=== PATIENT | male | born 1965 ===

== ENCOUNTER → 2020-12-11 12:47 | Outpatient (BNVA) | payer OTHER, SELFPAY | PROVIDERS: Visit Provider Internal Medicine | DX: R70.0 Elevated erythrocyte sedimentation rate (principal); M25.50 Pain in unspecified joint; M54.9 Dorsalgia, unspecified; Z11.59 Encounter for screening for other viral diseases; R53.83 Other fatigue; F17.290 Nicotine dependence, other tobacco product, uncomplicated | CPT/HCPCS: 99204; 99214 ==

== ENCOUNTER 2020-12-12 09:44 | Outpatient (CLI) | payer OTHER, SELFPAY ==
--- NOTE | 2020-12-12 09:53 | XR_ITS ---
WS: [id number] Right hand, 2 views, 12/12/2020 Clinical Data: R70.0 - Elevated erythrocyte sedimentation rate Comparison: None. Findings: No fractures or dislocations are seen. The soft tissues are unremarkable. There is minima l osteoarthritic change of the right second and third MCP joints. There is minimal osteoarthritis of the right second and third DIP joints. XR/XR hand RT 2V [id number] Impression: Minimal osteoarthritis of the second and third MCP joints and the second and th ird DIP joints of the right hand.
--- NOTE | 2020-12-12 09:53 | XR_ITS ---
WS: [id number] Left foot, 2 views, 12/12/2020 Clinical Data: M25.50 - Pain in unspecified joint Comparison: None. Findings: No fractures or dislocations are seen. No bone destruction or erosion is noted. Minimal osteoarthriti c change of the left first MTP joint is seen. There is an Achilles spur. No periarticular demineraliz ation or calcifications are noted. 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
--- NOTE | 2020-12-12 09:53 | XR_ITS ---
WS: [id number] Left hand, 2 views, 12/12/2020 Clinical Data: R70.0 - Elevated erythrocyte sedimentation rate Comparison: None. Findings: No new fractures or dislocations are seen. The soft tissues are unremarkable. There is minimal osteoa rthritic change of the head of the left third metacarpal There is a healed fracture of the head of th e left fifth metacarpal. There is a fracture of the left ulnar styloid. No periarticular demineraliza tion is seen. XR/XR hand LT 2V [id number] Impression: 1. Old fractures of the left fifth metacarpal and probably the ulnar styloid. 2. 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
--- NOTE | 2020-12-12 09:53 | XR_ITS ---
WS: [id number] Thoracic spine, 3 views, 12/12/2020 Clinical Data: R70.0 - Elevated erythrocyte sedimentation rate Comparison: None. Findings: No compression fractures are seen. The disc heights are normal. Minimal anterior osteoarthritic spurring of the lower thoracic vertebral bodies is seen. There is an anterior cervical disc fusion at C6-C7. XR/XR thoracic spine 3V* [id number] Impression: Minimal osteoarthritis of the lower thoracic vertebral bodies.
--- NOTE | 2020-12-12 09:53 | XR_ITS ---
WS: [id number] Lateral views of cervical spine in the flexion, extension and neutral positions. 12/12/2020 Clinical Data: R70.0 - Elevated erythrocyte sedimentation rate Comparison: None. Findings: There is an anterior cervical disc fusion at C6-C7. 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 There is disc narrowing at C5-C6 with a prominent anterior inferior spur. There is disc space narrowing at C6-C7. No compression fractures are seen. There is no limitation of motio n on flexion or extension and the anterior cervical disc fusion is stable. There is no free vertebral swelling. XR/XR cervical spine fl/ex [id number] Impression: 1. Stable anterior cervical disc fusion at C6-C7. 2. 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 3. Degenerative arthritic change at C4 and especially C5. 4. Degenerative disc narrowing at C5-C6. 5. Stable anterior cervical disc fusion and no limitation of motion on flexion or extension.
--- NOTE | 2020-12-12 09:53 | XR_ITS ---
WS: [id number] Right foot, 2 views, 12/12/2020 Clinical Data: M25.50 - Pain in unspecified joint Comparison: None. Findings: No fractures or dislocations are seen. No bone destruction or erosion is noted. The joint spaces and soft tissues are normal. There is an Achilles spur. No periarticular demineralization or calcifications are noted. XR/XR foot RT 2V [id number] Impression: Negative right foot.
--- NOTE | 2020-12-12 09:53 | XR_ITS ---
WS: [id number] Lumbar spine, 3 views, 12/12/2020 Clinical Data: R70.0 - Elevated erythrocyte sedimentation rate Comparison: None. Findings: No compression fractures or subluxation is seen. There is disc narrowing at L5-S1. There is moderate anterior osteoarthritic spurring of all lumbar vertebral bodies.. The transverse processes and SI leticia nts are normal. XR/XR lumbar spine 2-3V* [id number] Impression: 1. Degenerative disc narrowing at L5-S1. 2. Osteoarthritis of all the lumbar vertebral bodies.
[2020-12-12 11:16] LABS: Basophils # 0.1 10^3/uL (0.0-0.1); Basophils % 1.2 %; Eosinophils % 0.1 %; Hematocrit 42.4 % (42.0-52.0); Hemoglobin 13.8 g/dL (11.7-16.6); Lymphocytes # 2.6 10^3/uL (0.8-4.8); Lymphocytes % 31.4 %; Mean Corpuscular HGB Conc 32.5 g/dL (30.0-36.0); Mean Corpuscular Hemoglobin 31.4 pg (28.0-34.0); Mean Corpuscular Volume 96.6 fL (80-94); Mean Platelet Volume 9.2 fL (7.4-10.4); Monocytes # 0.6 10^3/uL (0.2-0.9); Monocytes % 7.4 %; Neutrophils # 4.84 10^3/uL (1.8-7.7); Neutrophils % 59.5 %; Nucleated Red Blood Cells % 0 %; Platelet Count 280 10^3/cmm (130-400); Red Blood Count 4.39 10^6/uL (4.1-5.3); Red Cell Distribution Width 13.2 % (12.1-15.1); White Blood Count 8.1 10^3/uL (4.0-10.0)
[2020-12-12 11:42] LABS: Calcium 8.9 mg/dL (8.5-10.5)
[2020-12-12 11:49] LABS: Parathyroid Hormone 52.7 pg/mL (15-65)
[2020-12-12 12:14] LABS: Alanine Aminotransferase 56 U/L (0-41); Alkaline Phosphatase 90 IU/L (40-130); Anion Gap 16.1 (5-19); Aspartate Amino Transferase 37 U/L (0-40); Blood Urea Nitrogen 18 mg/dL (6-20); C Reactive Protein 0.3 mg/L (0.0-4.9); Calcium 9.1 mg/dL (8.5-10.5); Carbon Dioxide 24 mmol/L (22-29); Chloride 106 mmol/L (98-107); Creatine Phosphokinase 101 U/L (39-308); Ferritin 25 ng/mL (30-400); Globulin 2.4 g/dL (1.3-4.6); Glomerular Filtration Rate 62.4 mL/min (90-130); Glucose 96 mg/dL (65-115); Iron 50 ug/dL (59-158); Magnesium 1.8 mg/dL (1.7-2.3); Osmolality Calculated 294 mOsm/kg (285-295); Phosphorus 3.2 mg/dL (2.5-4.5); Potassium 5.1 mmol/L (3.5-5.1); Sodium 141 mmol/L (136-145); Total Bilirubin 0.4 mg/dL (0.15-1.2); Total Protein 6.4 g/dL (6.6-8.7); Uric Acid 8.8 mg/dL (3.4-7.0)
[2020-12-12 12:18] LABS: Thyroid Stimulating Hormone 0.79 uIU/mL (0.27-4.20)
[2020-12-12 12:22] LABS: Erythrocyte Sedimentation Rate 15 mm/hr (0-10)
[2020-12-12 12:28] LABS: Cortisol Random 6.78 ug/dL (2.47-19.5); Hepatitis B Core AB, Total Non-Reactive (Nonreactive); Hepatitis B Surface Antigen Non-Reactive (Nonreactive); Hepatitis C Virus Antibody Non-Reactive (Nonreactive); Vitamin B12 834 pg/mL (232-1245)
[2020-12-12 13:05] LABS: 25 Hydroxy Vitamin D 49 ng/mL (30-100)
[2020-12-13 12:27] LABS: Lymes IGG WB <0.90 index
[2020-12-13 13:47] LABS: Cyclic Citrullinated Peptide <16 UNITS
[2020-12-14 14:41] LABS: THYROID PEROXIDASE ANTIBODIES 1 IU/mL (<9)
[2020-12-15 11:07] LABS: COMPLEMENT, TOTAL (CH50) >60 U/mL (31-60)
[2020-12-15 11:33] LABS: COMPLEMENT COMPONENT C3C 139 mg/dL (82-185); COMPLEMENT COMPONENT C4C 28 mg/dL (15-53)
[2020-12-15 12:57] LABS: CENTROMERE B ANTIBODY <1.0 NEG AI (<1.0 NEG); JO-1 ANTIBODY <1.0 NEG AI (<1.0 NEG); RNP ANTIBODY <1.0 NEG AI (<1.0 NEG); SCL-70 ANTIBODY <1.0 NEG AI (<1.0 NEG); SJOGREN'S ANTIBODY (SS-A) <1.0 NEG AI (<1.0 NEG); SM ANTIBODY <1.0 NEG AI (<1.0 NEG); SS-B <1.0 NEG AI (<1.0 NEG)
[2020-12-15 15:46] LABS: HLA-B27 NEGATIVE (NEGATIVE)
[2020-12-16 20:07] LABS: Tissue Transglutaminase IgA Ab <1 U/mL; Tissue transglutaminase Ab.IgG <1 U/mL
[2020-12-18 16:58] LABS: ANA SCREEN, IFA POSITIVE (NEGATIVE)
[2020-12-19 16:43] LABS: Immunoglobulin A 218 mg/dL (47-310)
[2020-12-19 21:37] LABS: Gliadin Ab.IgA 3 U (<20); Gliadin Ab.IgG <1 U (<20)
[2020-12-22 08:58] LABS: DNA AB (DS) CRITHIDIA,IFA NEGATIVE (NEGATIVE)
== END 2020-12-12 09:45 | disposition home or self-care (01) ==
PROVIDERS: Visit Provider Internal Medicine
DX: R70.0 Elevated erythrocyte sedimentation rate (principal); M25.50 Pain in unspecified joint; D86.9 Sarcoidosis, unspecified; Z79.899 Other long term (current) drug therapy; M45.9 Ankylosing spondylitis of unspecified sites in spine; Z11.59 Encounter for screening for other viral diseases
CPT/HCPCS: 72040; 72072; 72100; 73120; 73620; 80053; 82306; 82310; 82533; 82550; 82607; 82728; 82784; 83516; 83540; 83735; 83970; 84100; 84403; 84439; 84443; 84550; 85025; 85651; 86140; 86160; 86162; 86235; 86255; 86376; 86431; 86617; 86704; 86803; 86812; 87340